=== PATIENT | female | born 1945 | race Caucasian/White ===

== ENCOUNTER 2016-09-30 09:17 | Day surgery (SDC) | payer MEDICARE, BC ==
--- NOTE | 2016-09-26 15:43 | HP ---
PREOPERATIVE HISTORY AND PHYSICAL EXAM: DATE OF SURGERY/ADMISSION: 09/30/16 - [facility] AGE: 70. ATTENDING SURGEON: Che Taylor MD. (DICTATED BY SHELL GILMORE) PROCEDURE: Right thumb trigger finger release. DATE OF OFFICE VISIT/ENCOUNTER: 09/25/16 CHIEF COMPLAINT: Right thumb triggering. HISTORY OF PRESENT ILLNESS: This is a 70-year-old female who complains of painful locking of her right thumb since late December 2015. She does not recall any injury. She has had a trigger thumb release on the left performed several years ago and has done very well with that. As far as her right thumb is concerned, she failed conservative treatment including cortisone injection and at this point, she is interested in pursuing surgical intervention in the form of a right thumb trigger finger release. PAST MEDICAL HISTORY: 1. Hypertension. 2. Hypercholesterolemia. PAST SURGICAL HISTORY: 1. Tubal ligation. 2. Hysterectomy. 3. Low back surgery. 4. Tonsillectomy. 5. Bilateral cataract surgery. 6. Left trigger thumb release. 7. Right foot cyst excision. CURRENT MEDICATIONS: 1. Amlodipine besylate 5 mg daily. 2. Crestor 40 mg daily. 3. L-lysine 500 mg 2 daily. 4. Telmisartan/hydrochlorothiazide 80/25 mg daily. ALLERGIES: 1. CODEINE causes hives. 2. INJECTABLE DYE, reaction unknown. FAMILY MEDICAL HISTORY: Diabetes, heart disease, hypertension, and cancer. SOCIAL HISTORY: The patient is retired. She denies tobacco use, recreational drug use, and alcohol use. REVIEW OF SYSTEMS: General: Negative for fevers, chills, or night sweats. No known anesthesia problems. HEENT: Negative for lightheadedness, headache, or syncopal episodes. Integumentary: Negative for abrasions, lesions, or open wounds. Cardiothoracic: Positive for hypertension. Negative for chest pain, palpitations, or edema. Pulmonary: Negative for shortness of breath with exertion, chronic cough, or COPD. GI: Negative for nausea, vomiting, diarrhea , constipation, or GERD. : Negative for nocturia, urinary frequency, urgency , history of UTIs, or kidney problems. Musculoskeletal: Positive for current complaint. Neurological: Negative for paresthesias, numbness, history of seizure, stroke, or epilepsy. Endocrine: Negative for diabetes or thyroid issues. Hematologic: Negative for easy bruising, anemia, excessive bleeding, or history of DVT. Infectious Disease: Negative for history of MRSA, hepatitis C, and HIV. PHYSICAL EXAMINATION GENERAL: Well-developed, well-nourished 70-year-old female in no acute distress. VITAL SIGNS: Height 5 feet 6 inches, weight 190 pounds, pulse rate 72, blood pressure 131/71. HEENT: Normocephalic, atraumatic. Pupils are equal, round, reactive to light and accommodation. Extraocular movements are intact. NECK: Supple. No palpable lymph nodes. Throat is clear. PULMONARY: Lungs are clear to auscultation bilaterally. No wheezes, rales, or rhonchi. CARDIOVASCULAR: Regular rate and rhythm. S1, S2. No murmurs, rubs, or gallops. No edema. ABDOMEN: Positive bowel sounds. Soft, nontender. NEUROLOGICAL: Alert and oriented x3. Cranial nerves II through XII are intact. Sensation is intact to light touch. PERIPHERAL VASCULAR: 2+ radial and ulnar pulses. Negative Keaton test. MUSCULOSKELETAL: On exam of her right thumb, she has tenderness to palpation at the A1 tahmina. At the A1 tahmina, she has some limited motion and can flex her thumb about 20 degrees in full extension. She has mild swelling in her thumb and normal neurovascular function. IMPRESSION: Right trigger thumb. PLAN: The patient is scheduled to undergo a right trigger finger release with Dr. Taylor on 09/30/16. She will return to the office 10 to 14 days postop for followup and suture removal. A prescription for Ultracet was e-scribed to the patient's pharmacy for postoperative pain management. SHELL GILMORE [id number]/[facility] #: [id number] BILL
[~2016-09-30 09:17] MED LIST: Buffered Lidocaine 1% SYR 3ML* 3 ML/SYR SYRINGE INTRADERM ONE; Famotidine IV* 10 MG/ML 2 ML (20 mg) IV ONE; Lidocaine 1% INJ* 10 MG/ML 30 ML SDV ONE
[2016-09-30] MEDS ORDERED: Famotidine IV* 10 MG/ML 2 ML (20 mg) ONE (09:27)
[2016-09-30] MEDS ORDERED: Propofol* 10 MG/ML 20 ML BTL IV PUSH ONE (10:16)
[2016-09-30] MEDS ORDERED: fentaNYL* 50 MCG/ML 2 ML VIAL (100 MCG VIAL) ONE (10:16)
[2016-09-30] MEDS ORDERED: Lidocaine 2% PF * 5 ML VIAL ONE (10:16)
[2016-09-30] MEDS ORDERED: Midazolam* 1 MG/ML 5 ML VIAL (5 MG) ONE (10:16)
[2016-09-30] MEDS ORDERED: Ketorolac INJ* 30 MG/ML 1 ML VIAL ONE (10:16)
[2016-09-30] MEDS ORDERED: Acetaminophen TAB* 325 MG PO PRN (10:48)
[2016-09-30] MEDS ORDERED: DiMENhydriNATE IV* 50 MG/ML VIAL IV PUSH PRN (10:48)
[2016-09-30] MEDS ORDERED: Ondansetron INJ* 2 MG/ML VIAL ONE (11:00)
[2016-09-30 11:25] VITALS: BP 113/59
--- NOTE | 2016-09-30 22:10 | OP ---
DATE OF OPERATION: 09/30/16 [facility] DATE OF : 47 SURGEON: Che Taylor MD JOURNEY LINEMAN: SHELL Cruz ANESTHESIOLOGIST: Ronda Mena MD ANESTHESIA: Local MAC. PRE-OP DIAGNOSIS: Right trigger thumb. POST-OP DIAGNOSIS: Right trigger thumb. OPERATIVE PROCEDURE: Right trigger thumb release. ESTIMATED BLOOD LOSS: Zero. TOURNIQUET TIME: 5 minutes. INDICATIONS FOR PROCEDURE: Emmy is a 70-year-old female with clicking and locking of her right thumb. She presents for trigger thumb release. DESCRIPTION OF PROCEDURE: The patient was brought to the operating room, was given a sedation anesthetic and a local infiltration of 10 cc of 1% plain lidocaine. The skin of her right hand and forearm was prepped and draped in the usual sterile fashion. The hand and forearm were exsanguinated and the tourniquet elevated to 250 mmHg. A transverse incision was made, centered over the A1 tahmina of the right thumb, dissected through the subcutaneous tissue down to the A1 tahmina. The digital neurovascular bundles were located and retracted by the lead dental assistant, Lashay Hennessy. The A1 tahmina was then incised longitudinally completely releasing the tendon. The tendon had a mild abrasion, but was otherwise in good condition. The wound was irrigated with saline and the skin edges were reapproximated with 4-0 nylon suture. The wound was dressed with Xeroform, 4x4, Webril, and an Tarik wrap. The patient tolerated the procedure well, was brought to the recovery room in good condition. [id number]/[facility] #: [id number] [facility]
== END 2016-09-30 11:43 | disposition home or self-care (01) ==
LOC: OREAST 09:17
PROVIDERS: ATTEND Orthopaedic Surgery
DX: M65.311 Trigger thumb, right thumb (principal); I10 Essential (primary) hypertension
CPT/HCPCS: J1885; J2001; J2250; J2405; J2704; J3010